=== PATIENT | male | born 2000 | race Caucasian/White ===

== ENCOUNTER → 2021-02-28 | Outpatient (CLI) | payer BC ==
[2021-02-28 12:16] LABS: BLOOD UREA NITROGEN 14 MG/DL (7-18); CREATININE FOR GFR 0.91 MG/DL (0.70-1.30); GLOMERULAR FILTRATION RATE > 60.0 (>60); POTASSIUM SERUM 4.2 MEQ/L (3.5-5.1)
[2021-02-28 12:26] LABS: TESTOSTERONE 13 NG/DL (241-827)
[2021-02-28 12:27] LABS: ESTRADIOL 611.8 PG/ML (<39.8)
== END ==
LOC: M WUC 10:19
DX: F64.0 Transsexualism (principal)

== ENCOUNTER 2021-04-21 11:30 | Emergency (ER) | payer BC ==
[~2021-04-21] VITALS: Ht 172.7 cm; Wt 85.2 kg
[2021-04-21] MEDS ORDERED: PROG1CAP8 PO (11:41)
[2021-04-21] MEDS ORDERED: SPIR100T3 PO (11:41)
[2021-04-21] MEDS ORDERED: ESTR2TAB3 PO (11:41)
[2021-04-21] MEDS ORDERED: KETOROLAC 30 MG/ML 1ML VIAL IV ONE (14:35)
[2021-04-21 15:26] LABS: BASO % 0.2 % (0.0-1.0); EOS % 0.1 % (0.0-3.0); HEMATOCRIT 43.4 % (42.0-52.0); HEMOGLOBIN 14.9 g/dl (13.5-17.5); LYMPH # 1.4 10^3/uL (1.5-5.0); LYMPH % 9.6 % (24.0-44.0); MEAN CORPUSCULAR HGB CONC 34.3 g/dl (32.0-36.5); MEAN CORPUSCULAR VOLUME 87.5 fl (80.0-96.0); MONO % 6.4 % (2.0-8.0); NEUTROPHILS # 12.6 10^3/uL (1.5-8.5); NEUTROPHILS % 83.2 % (36.0-66.0); PLATELET COUNT, AUTOMATED 276 10^3/uL (150-450); RED BLOOD COUNT 4.96 10^6/uL (4.30-6.10); WHITE BLOOD COUNT 15.1 10^3/uL (4.0-10.0)
[2021-04-21] MEDS ORDERED: ISOVUE-370 76% 100ML VIAL As Ordered ONE (15:29)
[2021-04-21 16:02] LABS: ERYTHROCYTE SEDIMENTATION RATE 24 mm/hr (0-15)
[2021-04-21] MEDS ORDERED: AMPICILLIN SOD/SULBACTAM SOD 3 GM in D5W MINI-BAG PLUS 100 ML IV ONE (17:05)
[2021-04-21] MEDS ORDERED: AMOX875T2 PO (17:28)
[2021-04-21 17:52] VITALS: BP 128/68
== END 2021-04-21 18:14 | disposition home or self-care (01) ==
LOC: M ED 11:30
DX: K04.7 Periapical abscess without sinus (principal); F12.20 Cannabis dependence, uncomplicated
CPT/HCPCS: 70487; 80047; 83605; 85025; 85652; 86140; 87070; 87205; 96365; 96375; 99283; J1885; Q9967

== ENCOUNTER 2021-10-02 15:24 | Emergency (ER) | payer BC ==
[~2021-10-02] VITALS: Ht 177.8 cm; Wt 185.0 kg
[~2021-10-02 15:24] MED LIST: AMOX875T2 PO; ESTR2TAB3 PO; MINI1CAP PO; NALT50TA4 PO; NICO2GUM PO; OLAN2.5T25 PO; OLAN7.5T8 PO; PROG1CAP8 PO; SPIR100T3 PO; TRAZ-252 PO
[2021-10-02 17:33] VITALS: BP 115/58
== END 2021-10-02 17:35 | disposition home or self-care (01) ==
LOC: M ED 15:24
DX: F43.20 Adjustment disorder, unspecified (principal); A69.20 Lyme disease, unspecified; Z79.899 Other long term (current) drug therapy